=== PATIENT | female | born 1970 | race Hispanic/Latino ===

== ENCOUNTER 2021-06-25 19:12 | Inpatient (IN) | payer BC ==
[~2021-06-25 19:12] MED LIST: Iopamidol-370 76% 500 ML 1 ML ONE; niMODipine 30 MG CAP PO SCH
[2021-06-25 19:39] LABS: #Basophils 0.1 thou/uL (0.0-0.2); #Eosinphils 0.1 thou/uL (0.0-0.7); #Monocytes 1.1 thou/uL (0.11-0.59); #Neutrophils 4.3 thou/uL (1.40-6.50); %Basophils 0.8 % (0.0-1.0); %Eosinophils 1.8 % (0.0-10.0); %Lymphocytes 26.6 % (21.0-51.0); %Neutrophils 56.9 % (42.0-75.0); Hemoglobin 13.8 g/dL (12.0-16.0); Mean Corpuscular HGB CONC 32.8 g/dL (32.0-36.0); Mean Corpuscular Hemoglobin 30.4 pg (27.0-31.0); Mean Corpuscular Volume 92.6 fL (78.0-98.0); Mean Platelet Volume 6.9 fL (7.4-10.4); Platelet Count 329 thou/uL (130-400); Red Blood Cell (RBC) Count 4.52 mill/uL (4.20-5.40); White Blood Cell (WBC) Count 7.5 thou/uL (4.8-10.8)
[2021-06-25 19:53] LABS: BHCG - Serum Negative (NEGATIVE); Pregs Control Background? CLEAR/WHITE (CLR/WHITE); Pregs Control Bar Appear? YES (CONTROL BAR)
[2021-06-25 19:55] LABS: INR-International Normal Ratio 1.1
[2021-06-25 19:56] LABS: ALT (SGPT) 15 U/L (8-55); AST (SGOT) 14 U/L (5-34); Albumin 3.6 g/dL (3.5-5.0); Alkaline Phosphatase 94 U/L (40-110); Anion Gap 13 mmol/L (10-20); BUN (Urea Nitrogen) 9 mg/dL (7.0-18.7); Bilirubin, Total 0.3 mg/dL (0.2-1.2); CK (CPK) 32 U/L (29-168); Calc. Creatinine Clearance 0 mL/min (70-130); Calcium 8.9 mg/dL (7.8-10.44); Carbon Dioxide 27 mmol/L (22-29); Chloride 98 mmol/L (98-107); Globulin 2.8 g/dL (2.4-3.5); Glucose 96 mg/dL (70-105); PTT 34.1 sec (22.9-36.1); Potassium 3.8 mmol/L (3.5-5.1); Protein, Total 6.4 g/dL (6.0-8.3); Sodium 134 mmol/L (136-145)
[2021-06-25] MEDS ORDERED: hydrALAZINE 20 MG/ML VIAL ONE (20:41)
[2021-06-25 21:12] LABS: Bilirubin Negative (Negative); Blood, Urine Negative (Negative); Clarity Clear (Clear); Glucose, Urine (Dipstick) Normal (Negative); Ketone, Urine Negative (Negative); Leukocyte Negative Leu/uL (Negative); Nitrite Negative (Negative); Protein, Urine (Dipstick) Negative (Neg-Trace); Urobilinogen Normal mg/dL (Less than 2)
[2021-06-25] MEDS ORDERED: niMODipine 30 MG CAP PO SCH ×2 (21:15→23:00)
[2021-06-25] MEDS ORDERED: Sodium Chloride 256 MEQ in Sterile Water Injection 936 ML IV SCH (21:15)
[2021-06-25 21:58] LABS: Anion Gap 12 mmol/L (10-20); BUN (Urea Nitrogen) 9 mg/dL (7.0-18.7); Calc. Creatinine Clearance 0 mL/min (70-130); Calcium 8.7 mg/dL (7.8-10.44); Carbon Dioxide 29 mmol/L (22-29); Chloride 96 mmol/L (98-107); Glucose 97 mg/dL (70-105); Potassium 3.7 mmol/L (3.5-5.1); Sodium 133 mmol/L (136-145)
[2021-06-25 22:14] LABS: SARS-CoV-2 NAA Rapid Test Not Detected (NotDetected)
[2021-06-25] MEDS ORDERED: Norepinephrine 8 MG/0.9% NS 250 ML ONE (23:28)
[2021-06-25] MEDS ORDERED: Heparin 10,000 UNITS/ 10 ML VIAL ONE (23:47)
[2021-06-25] MEDS ORDERED: Lidocaine 1% (PF) 30 ML VIAL ONE (23:58)
[2021-06-26] MEDS ORDERED: PHENYLEPHRINE-NS 100 MCG/ML 10 ML SYRINGE ONE ×2 (00:20→13:07)
[2021-06-26] MEDS ORDERED: Lidocaine 1% PF 5 ML VIAL ONE ×3 (00:20→13:07)
[2021-06-26] MEDS ORDERED: Ondansetron ORAL SOLN. 4 MG/5 ML UDCUP ONE (00:20)
[2021-06-26] MEDS ORDERED: PROPOFOL 200 MG/20 ML VIAL ONE ×2 (00:20→13:07)
[2021-06-26] MEDS ORDERED: Dexamethasone 20 MG/5 ML VIAL ONE ×2 (00:20→13:07)
[2021-06-26] MEDS ORDERED: Rocuronium Bromide 10 MG/ML (10ML VIAL) ONE (00:20)
[2021-06-26] MEDS ORDERED: SUGAMMADEX SODIUM 200 MG/2 ML VIAL ONE (00:40)
[2021-06-26] MEDS ORDERED: niMODipine 30 MG CAP PO SCH (01:00)
[2021-06-26] MEDS ORDERED: Promethazine HCl 25 MG/ML VIAL IVPB PRN (01:19)
[2021-06-26] MEDS ORDERED: Promethazine HCl 25 MG/ML VIAL IM PRN (01:19)
[2021-06-26] MEDS ORDERED: Ondansetron HCl/PF 4 MG/2 ML Vial IVP PRN (01:19)
[2021-06-26] MEDS: Sodium Chloride 256 MEQ in Sterile Water Injection 936 ML IV SCH ×2 (02:41→10:36)
[2021-06-26] MEDS: niMODipine 30 MG CAP PO SCH ×6 (02:43→20:06)
[2021-06-26 05:11] LABS: #Lymphocytes 0.9 thou/uL (1.20-3.40); #Monocytes 0.3 thou/uL (0.11-0.59); %Basophils 0.4 % (0.0-1.0); %Eosinophils 0.4 % (0.0-10.0); %Lymphocytes 9.7 % (21.0-51.0); %Neutrophils 86.5 % (42.0-75.0); Mean Corpuscular HGB CONC 33.1 g/dL (32.0-36.0); Mean Corpuscular Hemoglobin 30.5 pg (27.0-31.0); Mean Corpuscular Volume 92.3 fL (78.0-98.0); Mean Platelet Volume 7.1 fL (7.4-10.4); Platelet Count 307 thou/uL (130-400); Red Blood Cell (RBC) Count 4.24 mill/uL (4.20-5.40); White Blood Cell (WBC) Count 9.3 thou/uL (4.8-10.8)
[2021-06-26 05:32] LABS: Anion Gap 11 mmol/L (10-20); Calcium 7.9 mg/dL (7.8-10.44); Carbon Dioxide 23 mmol/L (22-29); Chloride 109 mmol/L (98-107); Potassium 3.7 mmol/L (3.5-5.1); Sodium 139 mmol/L (136-145)
[2021-06-26 05:48] LABS: Glucose 132 mg/dL (70-105)
[2021-06-26 05:52] LABS: Calc. Creatinine Clearance 77 mL/min (70-130)
[2021-06-26 05:53] LABS: BUN (Urea Nitrogen) 5 mg/dL (7.0-18.7)
[2021-06-26] MEDS ORDERED: Sodium Chloride 256 MEQ in Sterile Water Injection 936 ML IV SCH (07:05)
[2021-06-26] MEDS ORDERED: Norepinephrine 8 MG in Dextrose 5% in Water 242 ML IVPB PRN (07:15)
[2021-06-26] MEDS ORDERED: Norepinephrine 8 MG/0.9% NS 250 ML IVPB SCH (07:30)
[2021-06-26] MEDS: Pantoprazole 40 MG VIAL IVP SCH ×2 (09:22→20:06)
[2021-06-26] MEDS: levETIRAcetam in NS 500 MG in Premix Bag 1 BAG IVPB SCH ×2 (09:24→20:05)
[2021-06-26] MEDS: Nicotine 21 MG PATCH TD SCH (09:25)
[2021-06-26] MEDS ORDERED: Iopamidol 370 76% 100 ML VIAL ONE (12:03)
[2021-06-26] MEDS ORDERED: Acetaminophen 325 MG TAB ONE (12:24)
[2021-06-26] MEDS: Acetaminophen 325 MG TAB PO PRN (12:30)
[2021-06-26] MEDS ORDERED: Heparin 10,000 UNITS/ 10 ML VIAL ONE (12:38)
[2021-06-26] MEDS ORDERED: Lidocaine 1% (PF) 30 ML VIAL ONE ×2 (12:45→12:47)
[2021-06-26] MEDS ORDERED: Fentanyl 100 MCG/2 ML VIAL ONE (12:53)
[2021-06-26] MEDS ORDERED: Ondansetron PF 4 MG/2 ML Vial ONE (13:07)
[2021-06-26] MEDS ORDERED: ePHEDrine 50 MG/ML VIAL ONE (13:07)
[2021-06-26] MEDS ORDERED: Succinylcholine 200 MG/10 ml SYRINGE FS ONE (13:07)
[2021-06-26] MEDS ORDERED: PAPAVERINE IVPB SCH (13:30)
[2021-06-26] MEDS ORDERED: SODIUM CHLORIDE 0.9% IVPB SCH (13:30)
[2021-06-26] MEDS: SODIUM CHLORIDE IV SCH (18:38)
[2021-06-27] MEDS: niMODipine 30 MG CAP PO SCH ×6 (00:47→21:10)
[2021-06-27] MEDS: SODIUM CHLORIDE IV SCH ×4 (02:42→23:49)
[2021-06-27 04:42] LABS: #Basophils 0.1 thou/uL (0.0-0.2); #Lymphocytes 2.2 thou/uL (1.20-3.40); #Monocytes 0.9 thou/uL (0.11-0.59); #Neutrophils 6.6 thou/uL (1.40-6.50); %Basophils 0.9 % (0.0-1.0); %Eosinophils 0.1 % (0.0-10.0); %Lymphocytes 22.7 % (21.0-51.0); %Monocytes 8.7 % (0.0-10.0); %Neutrophils 67.7 % (42.0-75.0); Mean Corpuscular HGB CONC 33.8 g/dL (32.0-36.0); Mean Corpuscular Hemoglobin 31.4 pg (27.0-31.0); Mean Corpuscular Volume 92.7 fL (78.0-98.0); Mean Platelet Volume 7.1 fL (7.4-10.4); Platelet Count 323 thou/uL (130-400); Red Blood Cell (RBC) Count 3.83 mill/uL (4.20-5.40); White Blood Cell (WBC) Count 9.8 thou/uL (4.8-10.8)
[2021-06-27 04:51] LABS: INR-International Normal Ratio 1.1; Prothrombin Time 14.4 sec (12.0-14.7)
[2021-06-27 05:07] LABS: ALT (SGPT) 13 U/L (8-55); AST (SGOT) 15 U/L (5-34); Albumin 3.4 g/dL (3.5-5.0); Alkaline Phosphatase 76 U/L (40-110); Anion Gap 13 mmol/L (10-20); BUN (Urea Nitrogen) 5 mg/dL (7.0-18.7); Bilirubin, Total 0.5 mg/dL (0.2-1.2); Calc. Creatinine Clearance 91 mL/min (70-130); Calcium 8.2 mg/dL (7.8-10.44); Carbon Dioxide 21 mmol/L (22-29); Chloride 106 mmol/L (98-107); Globulin 2.6 g/dL (2.4-3.5); Glucose 92 mg/dL (70-105); Potassium 3.1 mmol/L (3.5-5.1); Sodium 137 mmol/L (136-145)
[2021-06-27] MEDS: Labetalol HCl 100 MG/20 ML VIAL SLOW IVP PRN (08:35)
[2021-06-27] MEDS: Pantoprazole 40 MG VIAL IVP SCH ×2 (08:38→21:10)
[2021-06-27] MEDS: Nicotine 21 MG PATCH TD SCH (08:42)
[2021-06-27] MEDS ORDERED: niCARdipine 50 MG in Sodium Chloride 0.9% 250 ML 230 ML IV SCH (09:15)
[2021-06-27] MEDS: levETIRAcetam in NS 500 MG in Premix Bag 1 BAG IVPB SCH ×2 (10:17→21:10)
[2021-06-27] MEDS: Acetaminophen 325 MG TAB PO PRN (21:09)
[2021-06-28] MEDS: niMODipine 30 MG CAP PO SCH ×6 (01:04→21:22)
[2021-06-28] MEDS: SODIUM CHLORIDE IV SCH ×3 (06:31→21:22)
[2021-06-28 07:47] LABS: #Basophils 0.1 thou/uL (0.0-0.2); #Lymphocytes 1.8 thou/uL (1.20-3.40); #Monocytes 0.7 thou/uL (0.11-0.59); #Neutrophils 4.4 thou/uL (1.40-6.50); %Basophils 0.9 % (0.0-1.0); %Eosinophils 0.7 % (0.0-10.0); %Lymphocytes 25.8 % (21.0-51.0); %Monocytes 9.6 % (0.0-10.0); %Neutrophils 62.9 % (42.0-75.0); Hemoglobin 12.4 g/dL (12.0-16.0); Mean Corpuscular HGB CONC 33.9 g/dL (32.0-36.0); Mean Corpuscular Hemoglobin 31.4 pg (27.0-31.0); Mean Corpuscular Volume 92.7 fL (78.0-98.0); Mean Platelet Volume 6.9 fL (7.4-10.4); Platelet Count 329 thou/uL (130-400); Red Blood Cell (RBC) Count 3.96 mill/uL (4.20-5.40)
[2021-06-28 07:56] LABS: Anion Gap 10 mmol/L (10-20); BUN (Urea Nitrogen) 6 mg/dL (7.0-18.7); Calc. Creatinine Clearance 81 mL/min (70-130); Calcium 8.1 mg/dL (7.8-10.44); Carbon Dioxide 23 mmol/L (22-29); Chloride 108 mmol/L (98-107); Glucose 127 mg/dL (70-105); Potassium 3.1 mmol/L (3.5-5.1); Sodium 138 mmol/L (136-145)
[2021-06-28] MEDS: Nicotine 21 MG PATCH TD SCH (09:22)
[2021-06-28] MEDS: Pantoprazole 40 MG VIAL IVP SCH ×2 (09:22→21:22)
[2021-06-28] MEDS: levETIRAcetam in NS 500 MG in Premix Bag 1 BAG IVPB SCH ×2 (09:47→21:22)
[2021-06-28] MEDS: Senokot 8.6 MG TAB PO PRN (14:03)
[2021-06-29] MEDS: niMODipine 30 MG CAP PO SCH ×6 (00:45→20:50)
[2021-06-29] MEDS: SODIUM CHLORIDE IV SCH ×3 (03:29→18:22)
[2021-06-29] MEDS: Acetaminophen 325 MG TAB PO PRN ×2 (03:32→20:57)
[2021-06-29 05:50] LABS: #Basophils 0.1 thou/uL (0.0-0.2); #Eosinphils 0.1 thou/uL (0.0-0.7); #Lymphocytes 1.9 thou/uL (1.20-3.40); #Monocytes 0.7 thou/uL (0.11-0.59); #Neutrophils 3.2 thou/uL (1.40-6.50); %Eosinophils 1.5 % (0.0-10.0); %Lymphocytes 31.7 % (21.0-51.0); %Monocytes 11.1 % (0.0-10.0); %Neutrophils 54.7 % (42.0-75.0); Hemoglobin 11.6 g/dL (12.0-16.0); Mean Corpuscular HGB CONC 32.6 g/dL (32.0-36.0); Mean Corpuscular Hemoglobin 30.1 pg (27.0-31.0); Mean Corpuscular Volume 92.3 fL (78.0-98.0); Mean Platelet Volume 6.7 fL (7.4-10.4); Platelet Count 353 thou/uL (130-400); RBC Distribution Width 12.9 % (11.5-14.5); Red Blood Cell (RBC) Count 3.84 mill/uL (4.20-5.40); White Blood Cell (WBC) Count 5.9 thou/uL (4.8-10.8)
[2021-06-29 06:10] LABS: Anion Gap 10 mmol/L (10-20); BUN (Urea Nitrogen) 6 mg/dL (7.0-18.7); Calc. Creatinine Clearance 86 mL/min (70-130); Calcium 8.3 mg/dL (7.8-10.44); Carbon Dioxide 23 mmol/L (22-29); Chloride 109 mmol/L (98-107); Glucose 103 mg/dL (70-105); Sodium 139 mmol/L (136-145)
[2021-06-29] MEDS ORDERED: Potassium Chloride 20 MEQ TAB PO SCH (07:00)
[2021-06-29] MEDS: levETIRAcetam in NS 500 MG in Premix Bag 1 BAG IVPB SCH ×2 (08:23→20:50)
[2021-06-29] MEDS: Pantoprazole 40 MG VIAL IVP SCH ×2 (08:23→20:51)
[2021-06-29] MEDS: Nicotine 21 MG PATCH TD SCH (08:24)
[2021-06-29] MEDS ORDERED: Electrolyte Replacement Protocol FS PRN (10:45)
[2021-06-29] MEDS ORDERED: Potassium Chloride 40 MEQ in Sodium Chloride 0.9% 250 ML 250 ML IVPB SCH (11:45)
[2021-06-29 12:13] LABS: Potassium 3.6 mmol/L (3.5-5.1)
[2021-06-30] MEDS: SODIUM CHLORIDE IV SCH ×3 (00:56→23:27)
[2021-06-30] MEDS: niMODipine 30 MG CAP PO SCH ×6 (02:20→20:27)
[2021-06-30] MEDS ORDERED: Labetalol HCl 100 MG/20 ML VIAL ONE (02:54)
[2021-06-30] MEDS ORDERED: Tranexamic Acid 1,000 MG/10 ML VIAL ONE (02:54)
[2021-06-30] MEDS ORDERED: Ipratropium Bromide 2.5 ml Neb ONE (06:29)
[2021-06-30] MEDS ORDERED: Chloraseptic Spray 180 ml Bottle PO PRN (07:04)
[2021-06-30 07:12] LABS: #Basophils 0.1 thou/uL (0.0-0.2); #Eosinphils 0.1 thou/uL (0.0-0.7); #Lymphocytes 1.6 thou/uL (1.20-3.40); #Monocytes 0.6 thou/uL (0.11-0.59); #Neutrophils 2.9 thou/uL (1.40-6.50); %Basophils 1.4 % (0.0-1.0); %Eosinophils 1.8 % (0.0-10.0); %Monocytes 10.9 % (0.0-10.0); %Neutrophils 54.9 % (42.0-75.0); Hemoglobin 12.2 g/dL (12.0-16.0); Mean Corpuscular HGB CONC 33.8 g/dL (32.0-36.0); Mean Corpuscular Hemoglobin 31.2 pg (27.0-31.0); Mean Corpuscular Volume 92.3 fL (78.0-98.0); Mean Platelet Volume 6.6 fL (7.4-10.4); Platelet Count 353 thou/uL (130-400); White Blood Cell (WBC) Count 5.2 thou/uL (4.8-10.8)
[2021-06-30 07:33] LABS: Anion Gap 9 mmol/L (10-20); BUN (Urea Nitrogen) 7 mg/dL (7.0-18.7); Calc. Creatinine Clearance 85 mL/min (70-130); Calcium 8.3 mg/dL (7.8-10.44); Carbon Dioxide 23 mmol/L (22-29); Chloride 108 mmol/L (98-107); Glucose 95 mg/dL (70-105); Potassium 3.4 mmol/L (3.5-5.1); Sodium 137 mmol/L (136-145)
[2021-06-30] MEDS ORDERED: Potassium Chloride 20 MEQ TAB PO SCH (08:15)
[2021-06-30] MEDS: Pantoprazole 40 MG VIAL IVP SCH ×2 (08:54→20:28)
[2021-06-30] MEDS: levETIRAcetam in NS 500 MG in Premix Bag 1 BAG IVPB SCH ×2 (08:54→20:27)
[2021-06-30] MEDS: Nicotine 21 MG PATCH TD SCH (09:03)
[2021-06-30] MEDS ORDERED: Acetaminophen 325 MG TAB ONE (10:09)
[2021-06-30] MEDS: Acetaminophen 325 MG TAB PO PRN (10:11)
[2021-06-30] MEDS: Senokot 8.6 MG TAB PO PRN (11:33)
[2021-07-01] MEDS: niMODipine 30 MG CAP PO SCH ×6 (01:00→20:23)
[2021-07-01] MEDS: Acetaminophen 325 MG TAB PO PRN (08:46)
[2021-07-01] MEDS: Nicotine 21 MG PATCH TD SCH (08:49)
[2021-07-01] MEDS: levETIRAcetam in NS 500 MG in Premix Bag 1 BAG IVPB SCH ×2 (08:52→20:23)
[2021-07-01] MEDS: Pantoprazole 40 MG VIAL IVP SCH ×2 (08:53→20:23)
[2021-07-01] MEDS: Labetalol HCl 100 MG/20 ML VIAL SLOW IVP PRN (09:00)
[2021-07-01] MEDS: SODIUM CHLORIDE IV SCH ×2 (14:47→20:31)
[2021-07-01 17:20] LABS: Anion Gap 10 mmol/L (10-20); BUN (Urea Nitrogen) 8 mg/dL (7.0-18.7); Calc. Creatinine Clearance 80 mL/min (70-130); Calcium 7.9 mg/dL (7.8-10.44); Carbon Dioxide 25 mmol/L (22-29); Chloride 116 mmol/L (98-107); Glucose 91 mg/dL (70-105); Potassium 3.5 mmol/L (3.5-5.1); Sodium 147 mmol/L (136-145)
[2021-07-01] MEDS: hydrALAZINE 20 MG/ML VIAL SLOW IVP PRN (18:06)
[2021-07-01] MEDS ORDERED: Potassium Chloride 20 MEQ TAB PO SCH (22:45)
[2021-07-02] MEDS: niMODipine 30 MG CAP PO SCH ×6 (00:46→20:22)
[2021-07-02] MEDS: SODIUM CHLORIDE IV SCH ×3 (03:27→18:16)
[2021-07-02 04:43] LABS: Anion Gap 10 mmol/L (10-20); BUN (Urea Nitrogen) 11 mg/dL (7.0-18.7); Calc. Creatinine Clearance 74 mL/min (70-130); Calcium 8.9 mg/dL (7.8-10.44); Carbon Dioxide 25 mmol/L (22-29); Chloride 107 mmol/L (98-107); Glucose 97 mg/dL (70-105); Potassium 4.3 mmol/L (3.5-5.1); Sodium 138 mmol/L (136-145)
[2021-07-02] MEDS: levETIRAcetam in NS 500 MG in Premix Bag 1 BAG IVPB SCH ×3 (09:59→20:22)
[2021-07-02] MEDS: Nicotine 21 MG PATCH TD SCH (10:35)
[2021-07-02] MEDS: Pantoprazole 40 MG VIAL IVP SCH ×2 (10:35→20:23)
[2021-07-02] MEDS: hydrALAZINE 20 MG/ML VIAL SLOW IVP PRN (12:23)
[2021-07-02] MEDS ORDERED: Bisacodyl 10 MG SUPP PR PRN (16:12)
[2021-07-02] MEDS ORDERED: Polyethylene Glycol 3350 17 GM Packet PO PRN (16:13)
[2021-07-03] MEDS: niMODipine 30 MG CAP PO SCH ×6 (00:18→20:53)
[2021-07-03] MEDS: SODIUM CHLORIDE IV SCH ×4 (02:28→21:26)
[2021-07-03 04:59] LABS: Anion Gap 10 mmol/L (10-20); BUN (Urea Nitrogen) 11 mg/dL (7.0-18.7); Calc. Creatinine Clearance 81 mL/min (70-130); Calcium 8.7 mg/dL (7.8-10.44); Carbon Dioxide 25 mmol/L (22-29); Chloride 106 mmol/L (98-107); Glucose 95 mg/dL (70-105); Potassium 3.7 mmol/L (3.5-5.1); Sodium 137 mmol/L (136-145)
[2021-07-03] MEDS: levETIRAcetam in NS 500 MG in Premix Bag 1 BAG IVPB SCH ×2 (09:20→20:53)
[2021-07-03] MEDS: Pantoprazole 40 MG VIAL IVP SCH ×2 (09:20→20:53)
[2021-07-03] MEDS: Nicotine 21 MG PATCH TD SCH (09:22)
[2021-07-03 16:52] LABS: SARS-CoV-2 NAA Rapid Test Not Detected (NotDetected)
[2021-07-04] MEDS: niMODipine 30 MG CAP PO SCH ×6 (00:17→20:57)
[2021-07-04 04:22] LABS: Anion Gap 13 mmol/L (10-20); BUN (Urea Nitrogen) 11 mg/dL (7.0-18.7); Calc. Creatinine Clearance 78 mL/min (70-130); Calcium 9.2 mg/dL (7.8-10.44); Carbon Dioxide 23 mmol/L (22-29); Chloride 104 mmol/L (98-107); Glucose 87 mg/dL (70-105); Potassium 3.7 mmol/L (3.5-5.1); Sodium 136 mmol/L (136-145)
[2021-07-04] MEDS: SODIUM CHLORIDE IV SCH ×3 (05:52→20:58)
[2021-07-04 07:51] LABS: #Eosinphils 0.2 thou/uL (0.0-0.7); #Lymphocytes 1.4 thou/uL (1.20-3.40); #Monocytes 0.7 thou/uL (0.11-0.59); #Neutrophils 2.5 thou/uL (1.40-6.50); %Basophils 0.7 % (0.0-1.0); %Eosinophils 3.2 % (0.0-10.0); %Lymphocytes 29.8 % (21.0-51.0); %Neutrophils 52.3 % (42.0-75.0); Hemoglobin 11.6 g/dL (12.0-16.0); Mean Corpuscular HGB CONC 32.7 g/dL (32.0-36.0); Mean Corpuscular Hemoglobin 30.1 pg (27.0-31.0); Mean Corpuscular Volume 91.9 fL (78.0-98.0); Mean Platelet Volume 6.4 fL (7.4-10.4); Platelet Count 401 thou/uL (130-400); RBC Distribution Width 13.4 % (11.5-14.5); Red Blood Cell (RBC) Count 3.86 mill/uL (4.20-5.40); White Blood Cell (WBC) Count 4.8 thou/uL (4.8-10.8)
[2021-07-04] MEDS: Pantoprazole 40 MG VIAL IVP SCH ×2 (08:49→20:58)
[2021-07-04] MEDS: Nicotine 21 MG PATCH TD SCH (08:49)
[2021-07-04] MEDS: levETIRAcetam in NS 500 MG in Premix Bag 1 BAG IVPB SCH ×2 (08:49→20:57)
[2021-07-05] MEDS: niMODipine 30 MG CAP PO SCH ×6 (00:37→20:39)
[2021-07-05] MEDS: Acetaminophen 325 MG TAB PO PRN ×2 (02:47→21:45)
[2021-07-05] MEDS: SODIUM CHLORIDE IV SCH ×2 (03:49→11:20)
[2021-07-05] MEDS: levETIRAcetam in NS 500 MG in Premix Bag 1 BAG IVPB SCH ×2 (08:39→20:39)
[2021-07-05] MEDS: Nicotine 21 MG PATCH TD SCH (08:40)
[2021-07-05] MEDS: Pantoprazole 40 MG VIAL IVP SCH ×2 (08:40→20:39)
[2021-07-05] MEDS ORDERED: Iopamidol-370 76% 500 ML 1 ML ONE (09:14)
[2021-07-05 12:08] LABS: Anion Gap 12 mmol/L (10-20); BUN (Urea Nitrogen) 9 mg/dL (7.0-18.7); Calc. Creatinine Clearance 73 mL/min (70-130); Calcium 9.1 mg/dL (7.8-10.44); Carbon Dioxide 25 mmol/L (22-29); Chloride 106 mmol/L (98-107); Glucose 94 mg/dL (70-105); Sodium 139 mmol/L (136-145)
[2021-07-06] MEDS: SODIUM CHLORIDE IV SCH ×4 (01:40→22:43)
[2021-07-06] MEDS: niMODipine 30 MG CAP PO SCH ×3 (01:40→08:40)
[2021-07-06] MEDS: Acetaminophen 325 MG TAB PO PRN (01:42)
[2021-07-06 05:01] LABS: Anion Gap 11 mmol/L (10-20); BUN (Urea Nitrogen) 10 mg/dL (7.0-18.7); Calc. Creatinine Clearance 74 mL/min (70-130); Calcium 8.7 mg/dL (7.8-10.44); Carbon Dioxide 24 mmol/L (22-29); Chloride 106 mmol/L (98-107); Glucose 90 mg/dL (70-105); Potassium 3.9 mmol/L (3.5-5.1); Sodium 137 mmol/L (136-145)
[2021-07-06] MEDS: Pantoprazole 40 MG VIAL IVP SCH ×2 (08:40→20:43)
[2021-07-06] MEDS: levETIRAcetam 500 MG TAB PO SCH ×2 (08:40→20:43)
[2021-07-06] MEDS: Nicotine 21 MG PATCH TD SCH (08:41)
[2021-07-06 16:55] VITALS: BMI 15.8
[2021-07-06] MEDS: hydrALAZINE 20 MG/ML VIAL SLOW IVP PRN (21:05)
[2021-07-07] MEDS: Acetaminophen 325 MG TAB PO PRN (01:35)
[2021-07-07 04:29] LABS: Anion Gap 11 mmol/L (10-20); BUN (Urea Nitrogen) 10 mg/dL (7.0-18.7); Calc. Creatinine Clearance 71 mL/min (70-130); Calcium 8.7 mg/dL (7.8-10.44); Carbon Dioxide 23 mmol/L (22-29); Chloride 108 mmol/L (98-107); Glucose 103 mg/dL (70-105); Potassium 3.6 mmol/L (3.5-5.1); Sodium 138 mmol/L (136-145)
[2021-07-07] MEDS: SODIUM CHLORIDE IV SCH ×3 (05:30→20:15)
[2021-07-07] MEDS: levETIRAcetam 500 MG TAB PO SCH ×2 (08:40→20:39)
[2021-07-07] MEDS: Pantoprazole 40 MG VIAL IVP SCH ×2 (08:40→20:39)
[2021-07-07] MEDS: Nicotine 21 MG PATCH TD SCH (08:40)
[2021-07-07] MEDS: Labetalol HCl 100 MG/20 ML VIAL SLOW IVP PRN (21:19)
[2021-07-08] MEDS: Acetaminophen 325 MG TAB PO PRN (02:52)
[2021-07-08 04:34] LABS: Anion Gap 12 mmol/L (10-20); BUN (Urea Nitrogen) 8 mg/dL (7.0-18.7); Calc. Creatinine Clearance 83 mL/min (70-130); Calcium 8.4 mg/dL (7.8-10.44); Carbon Dioxide 23 mmol/L (22-29); Chloride 107 mmol/L (98-107); Glucose 94 mg/dL (70-105); Potassium 3.8 mmol/L (3.5-5.1); Sodium 138 mmol/L (136-145)
[2021-07-08] MEDS: Pantoprazole 40 MG VIAL IVP SCH ×2 (09:27→22:00)
[2021-07-08] MEDS: Nicotine 21 MG PATCH TD SCH (09:27)
[2021-07-08] MEDS: levETIRAcetam 500 MG TAB PO SCH ×2 (09:27→22:00)
[2021-07-08] MEDS: SODIUM CHLORIDE IV SCH ×2 (12:12→19:37)
[2021-07-09] MEDS: Acetaminophen 325 MG TAB PO PRN (03:43)
[2021-07-09] MEDS: SODIUM CHLORIDE IV SCH (03:43)
[2021-07-09 05:03] LABS: Anion Gap 11 mmol/L (10-20); BUN (Urea Nitrogen) 8 mg/dL (7.0-18.7); Calc. Creatinine Clearance 68 mL/min (70-130); Calcium 8.8 mg/dL (7.8-10.44); Carbon Dioxide 26 mmol/L (22-29); Chloride 106 mmol/L (98-107); Glucose 89 mg/dL (70-105); Potassium 3.8 mmol/L (3.5-5.1); Sodium 139 mmol/L (136-145)
[2021-07-09] MEDS ORDERED: SODIUM CHLORIDE IV SCH (07:54)
[2021-07-09] MEDS: levETIRAcetam 500 MG TAB PO SCH ×2 (09:10→20:48)
[2021-07-09] MEDS: Pantoprazole 40 MG VIAL IVP SCH ×2 (09:10→20:48)
[2021-07-09] MEDS: Nicotine 21 MG PATCH TD SCH (09:11)
[2021-07-10 04:44] LABS: Anion Gap 11 mmol/L (10-20); BUN (Urea Nitrogen) 12 mg/dL (7.0-18.7); Calc. Creatinine Clearance 68 mL/min (70-130); Calcium 9.2 mg/dL (7.8-10.44); Carbon Dioxide 27 mmol/L (22-29); Chloride 105 mmol/L (98-107); Glucose 96 mg/dL (70-105); Potassium 3.8 mmol/L (3.5-5.1); Sodium 139 mmol/L (136-145)
[2021-07-10] MEDS: Pantoprazole 40 MG VIAL IVP SCH (09:13)
[2021-07-10] MEDS: Nicotine 21 MG PATCH TD SCH (09:13)
[2021-07-10] MEDS: levETIRAcetam 500 MG TAB PO SCH ×2 (09:13→20:05)
[2021-07-10] MEDS: SODIUM CHLORIDE IV SCH (17:16)
[2021-07-11] MEDS: SODIUM CHLORIDE IV SCH (04:44)
[2021-07-11] MEDS ORDERED: SODIUM CHLORIDE IV SCH (07:00)
[2021-07-11] MEDS: Nicotine 21 MG PATCH TD SCH (09:21)
[2021-07-11] MEDS: levETIRAcetam 500 MG TAB PO SCH ×2 (09:21→20:08)
[2021-07-11 10:47] VITALS: BP 128/85
[2021-07-11 12:47] LABS: Anion Gap 9 mmol/L (10-20); BUN (Urea Nitrogen) 10 mg/dL (7.0-18.7); Calc. Creatinine Clearance 68 mL/min (70-130); Calcium 9.2 mg/dL (7.8-10.44); Carbon Dioxide 29 mmol/L (22-29); Chloride 106 mmol/L (98-107); Glucose 105 mg/dL (70-105); Potassium 3.5 mmol/L (3.5-5.1); Sodium 140 mmol/L (136-145)
[2021-07-11] MEDS ORDERED: Potassium Chloride 20 MEQ TAB PO SCH (14:00)
[2021-07-12 05:28] LABS: Anion Gap 11 mmol/L (10-20); BUN (Urea Nitrogen) 14 mg/dL (7.0-18.7); Calc. Creatinine Clearance 71 mL/min (70-130); Calcium 9.2 mg/dL (7.8-10.44); Carbon Dioxide 26 mmol/L (22-29); Chloride 107 mmol/L (98-107); Glucose 96 mg/dL (70-105); Potassium 4.1 mmol/L (3.5-5.1); Sodium 140 mmol/L (136-145)
[2021-07-12] MEDS: levETIRAcetam 500 MG TAB PO SCH ×2 (09:39→19:48)
[2021-07-12] MEDS: Nicotine 21 MG PATCH TD SCH (09:39)
[2021-07-12] MEDS: hydrALAZINE 20 MG/ML VIAL SLOW IVP PRN (19:45)
[2021-07-12] MEDS ORDERED: Atorvastatin Calcium 40 MG TAB PO SCH (21:00)
[2021-07-12] MEDS: Acetaminophen 325 MG TAB PO PRN (21:52)
[2021-07-13 04:32] LABS: Anion Gap 11 mmol/L (10-20); BUN (Urea Nitrogen) 14 mg/dL (7.0-18.7); Calc. Creatinine Clearance 63 mL/min (70-130); Calcium 9.3 mg/dL (7.8-10.44); Carbon Dioxide 26 mmol/L (22-29); Chloride 104 mmol/L (98-107); Glucose 94 mg/dL (70-105); Sodium 137 mmol/L (136-145)
[2021-07-13] MEDS: Nicotine 21 MG PATCH TD SCH (10:08)
[2021-07-13] MEDS: levETIRAcetam 500 MG TAB PO SCH (10:08)
[2021-07-13 11:24] VITALS: TEMP 98
== END 2021-07-13 13:21 | disposition home or self-care (01) | DRG 20 ==
LOC: ERS 19:12 → ERHOLD 20:51 → SURG A 06-26 00:17 → PACU-TCU 06-26 00:18 → CCU 06-26 16:22 → PACU-TCU 06-30 01:09 → CCU 06-30 21:42 → IMCU/EMU 07-04 13:50
PROVIDERS: ADMIT Neurological Surgery; ATTEND Hospitalist
PROC: B3161ZZ Fluoroscopy of Right Internal Carotid Artery using Low Osmolar Contrast (ICD-10-PCS; 2021-06-25)
PROC: B31R1ZZ Fluoroscopy of Intracranial Arteries using Low Osmolar Contrast (ICD-10-PCS; 2021-06-25)
PROC: 3E033XZ Introduction of Vasopressor into Peripheral Vein, Percutaneous Approach (ICD-10-PCS; 2021-06-25)
PROC: 03LG3DZ Occlusion of Intracranial Artery with Intraluminal Device, Percutaneous Approach (ICD-10-PCS; principal; 2021-06-26)
PROC: B31R1ZZ Fluoroscopy of Intracranial Arteries using Low Osmolar Contrast (ICD-10-PCS; 2021-06-26)
PROC: 0DH67UZ Insertion of Feeding Device into Stomach, Via Natural or Artificial Opening (ICD-10-PCS; 2021-06-27)
DX: I60.11 Nontraumatic subarachnoid hemorrhage from right middle cerebral artery (principal); E43 Unspecified severe protein-calorie malnutrition; Z20.822 Contact with and (suspected) exposure to COVID-19; G81.94 Hemiplegia, unspecified affecting left nondominant side; I67.848 Other cerebrovascular vasospasm and vasoconstriction; R29.702 NIHSS score 2; F17.210 Nicotine dependence, cigarettes, uncomplicated; D25.9 Leiomyoma of uterus, unspecified; F10.20 Alcohol dependence, uncomplicated; R29.810 Facial weakness; R47.81 Slurred speech; R47.1 Dysarthria and anarthria; R51.9 Headache, unspecified; R41.82 Altered mental status, unspecified; E87.6 Hypokalemia; R13.10 Dysphagia, unspecified; I11.9 Hypertensive heart disease without heart failure; Z68.1 Body mass index [BMI] 19.9 or less, adult; Z79.899 Other long term (current) drug therapy; Z80.9 Family history of malignant neoplasm, unspecified
CPT/HCPCS: 36415; 36416; 61624; 70450; 70496; 70498; 71045; 74018; 75894; 80048; 80053; 81003; 82550; 83605; 84484; 84703; 85025; 85610; 85730; 93005; 93970; 96374; A4217; C1887; C9113; J0360; J1100; J1642; J1644; J1953; J2001; J2405; J2704; J3010; J3490; J7050; Q0162; Q9967; U0002